=== PATIENT | male | born 1965 | race Caucasian/White ===

== ENCOUNTER 2018-03-28 08:21 | Emergency (ER) | payer OTHER ==
[2018-03-28 08:26] VITALS: BP 137/95; PULSE 84; TEMP 98; BMI 44.1
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
[2018-03-28] MEDS ORDERED: KETOROLAC TROMETHAMINE 60 MG/2 ML VIAL IM ONE (08:57)
[2018-03-28] MEDS ORDERED: KETOROLAC TROMETHAMINE 60 MG/2 ML VIAL ONE (08:58)
== END 2018-03-28 10:54 | disposition home or self-care (01) ==
LOC: JERFT 08:21
CPT/HCPCS: 72050-TC-FY; 72100-TC-FY; 99281-25

== ENCOUNTER 2019-05-23 03:08 | Emergency (ER) | payer SELFPAY ==
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
[2019-05-23 03:57] VITALS: BMI 41.3
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
[2019-05-23 04:15] LABS: BASO % 0.6 % (0-2.0); EOS % 1.5 % (0-4.5); HEMATOCRIT 44.9 % (35.4-49); HEMOGLOBIN 15.1 GM/dL (11.7-16.9); LYMPH % 15.8 % (8-40); MCH 30.4 pg (25.7-33.7); MCHC 33.7 g/dl (32.0-35.9); MEAN PLT VOLUME 8.2 fl (7.5-11.1); MONO % 6.3 % (3.8-10.2); NEUT % 75.8 % (42.8-82.8); PLATELET COUNT 258 K/MM3 (134-434); RBC 4.98 M/mm3 (4.00-5.60); RDW 13.8 % (11.9-15.9)
[2019-05-23] MEDS ORDERED: ACETAMINOPHEN 1000 MG/100 ML VIAL (NON FORMULARY) IVPB ONE (04:19)
[2019-05-23 04:29] LABS: INR 0.96 (0.83-1.09); PROTHROMBIN TIME (PATIENT) 11.3 SEC (9.7-13.0)
[2019-05-23 04:32] LABS: ACTIVATED PTT 32.7 SECONDS (25.2-36.5)
[2019-05-23] MEDS ORDERED: ACETAMINOPHEN INJECTION 100 ML IVPB ONE (04:41)
[2019-05-23 04:52] LABS: ALBUMIN 3.3 g/dl (3.4-5.0); BILIRUBIN,TOTAL 0.5 mg/dL (0.2-1); BLOOD UREA NITROGEN 16.7 mg/dL (7-18); CALCIUM 8.7 mg/dL (8.5-10.1); CREATININE 0.8 mg/dL (0.55-1.3); POTASSIUM 3.9 mmol/L (3.5-5.1); TOT PROT 6.6 g/dl (6.4-8.2)
--- NOTE | 2019-05-23 10:41 | EKG ---
Test Reason : Blood Pressure : / mmHG Vent. Rate : 073 BPM Atrial Rate : 073 BPM P-R Int : 144 ms QRS Dur : 086 ms QT Int : 384 ms P-R-T Axes : 043 018 032 degrees QTc Int : 423 ms POOR DATA QUALITY, INTERPRETATION MAY BE ADVERSELY AFFECTED NORMAL SINUS RHYTHM NORMAL ECG WHEN COMPARED WITH ECG OF 21-FEB-2016 20:05, NO SIGNIFICANT CHANGE WAS FOUND Confirmed by Bradford Cabrales MD ([id number]) on 05/23/2019 10:40:55 AM Referred By: Confirmed By:Bradford Cabrales MD
[2019-05-23 11:28] VITALS: BP 122/77; PULSE 86; TEMP 97.2
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
== END 2019-05-23 11:38 | disposition home or self-care (01) ==
LOC: JER 03:08
PROC: 3E033NZ Introduction of Analgesics, Hypnotics, Sedatives into Peripheral Vein, Percutaneous Approach (ICD-10-PCS; principal; 2019-05-23)
DX: S13.4XXA Sprain of ligaments of cervical spine, initial encounter (principal); S80.02XA Contusion of left knee, initial encounter; V43.52XA Car driver injured in collision with other type car in traffic accident, initial encounter; Y93.89 Activity, other specified; Y92.410 Unspecified street and highway as the place of occurrence of the external cause; Z85.46 Personal history of malignant neoplasm of prostate
CPT/HCPCS: 36415; 70450-TC; 71260-TC; 72125-TC; 73562-TC-LT-FY; 73700-TC-RT; 74177-TC; 80053; 82550; 84484; 85025; 85610; 85730; 93005; 93010; 99285-25; J0131

== ENCOUNTER 2022-02-16 11:49 | Emergency (ER) | payer OTHER ==
[2022-02-16 12:27] VITALS: BP 127/83; PULSE 76; RESP 18; TEMP 98; BMI 38.4
[2022-02-16] MEDS ORDERED: METHOCARBAMOL 500 MG TABLET PO ONE (13:12)
[2022-02-16] MEDS ORDERED: METHOCARBAMOL 500 MG TABLET ONE (13:28)
== END 2022-02-16 13:53 | disposition home or self-care (01) ==
LOC: JERFT 11:49
DX: M25.511 Pain in right shoulder (principal)
CPT/HCPCS: 73030-TC-RT-FY; 99283-25

== ENCOUNTER 2022-06-21 04:29 | Day surgery (SDC) | payer OTHER ==
[2022-06-17 12:38] VITALS: BMI 38.4
[~2022-06-21 04:29] MED LIST: BUPIVACAINE HCL/PF 0.25% (2.5MG/ML) 10 ML VIAL IJ ONE; LIDOCAINE HCL 1% PRESERVATIVE FREE - 30ML VIAL NR ONE
[2022-06-21] MEDS ORDERED: BUPIVACAINE HCL/PF 0.25% (2.5MG/ML) 10 ML VIAL ONE (08:43)
[2022-06-21] MEDS ORDERED: BUPIVACAINE HCL/PF 0.5% (5MG/ML) 10 ML VIAL ONE (08:44)
[2022-06-21] MEDS ORDERED: LIDOCAINE HCL/PF 1% SDV 5ML VIAL ONE (08:44)
[2022-06-21] MEDS ORDERED: BETAMET ACET/BETAMET NA PH 30 MG/5 ML VIAL ONE (08:44)
[2022-06-21] MEDS ORDERED: DEXAMETHASONE SOD PHOSPHATE 10 MG/1 ML VIAL ONE (09:32)
[2022-06-21] MEDS ORDERED: MIDAZOLAM HCL 2 MG/2 ML SINGLE DOSE VIAL ONE (10:11)
[2022-06-21] MEDS ORDERED: LIDOCAINE HCL 1% PRESERVATIVE FREE - 30ML VIAL NR ONE (10:19)
[2022-06-21] MEDS ORDERED: IOHEXOL 180 MG/1 ML ML IJ ONE (10:19)
[2022-06-21] MEDS ORDERED: BUPIVACAINE HCL/PF 0.25% (2.5MG/ML) 10 ML VIAL IJ ONE (10:19)
[2022-06-21] MEDS ORDERED: DEXAMETHASONE SOD PHOSPHATE 10 MG/1 ML VIAL IM ONE (10:23)
[2022-06-21 13:05] VITALS: RESP 18
[2022-06-21 13:21] VITALS: TEMP 97.9
[2022-06-21 13:25] VITALS: BP 150/88; PULSE 93
== END 2022-06-21 12:04 | disposition home or self-care (01) ==
LOC: JASU-SURG 04:29
PROVIDERS: ATTEND Physical Medicine & Rehabilitation
PROC: 3E0R3BZ Introduction of Anesthetic Agent into Spinal Canal, Percutaneous Approach (ICD-10-PCS; 2022-06-21)
PROC: 3E0R33Z Introduction of Anti-inflammatory into Spinal Canal, Percutaneous Approach (ICD-10-PCS; principal; 2022-06-21 09:30)
DX: M54.16 Radiculopathy, lumbar region (principal); M54.50 Low back pain, unspecified
CPT/HCPCS: 76000-TC-FY; 82962; J1100

== ENCOUNTER 2023-11-09 19:05 | Inpatient (IN) | payer SELFPAY ==
[2023-11-09] MEDS ORDERED: ACETAMINOPHEN INJECTION 100 ML IVPB ONE (20:13)
[2023-11-09] MEDS: ACETAMINOPHEN 1000 MG/100 ML BAG IVPB ONE (20:21)
[2023-11-09 20:35] LABS: BASO % 0.5 % (0-2.0); EOS % 0.2 % (0-4.5); HEMATOCRIT 44.9 % (35.4-49); HEMOGLOBIN 15.3 GM/dL (11.7-16.9); MCH 30.8 pg (25.7-33.7); MCHC 34.2 g/dl (32.0-35.9); MEAN CELL VOLUME 89.9 fl (80-96); MEAN PLT VOLUME 8.5 fl (7.5-11.1); MONO % 7.5 % (3.8-10.2); NEUT % 83.8 % (42.8-82.8); PLATELET COUNT 242 10^3/uL (134-434); RBC 4.99 M/mm3 (4.00-5.60); RDW 13.2 % (11.9-15.9); WHITE BLOOD COUNT 14.9 K/mm3 (4.0-10.0)
[2023-11-09 20:48] LABS: POTASSIUM 3.9 mmol/L (3.5-5.1)
[2023-11-09 20:50] LABS: CALCIUM 8.4 mg/dL (8.5-10.1)
[2023-11-09 20:51] LABS: ALBUMIN 3.4 g/dl (3.4-5.0); BLOOD UREA NITROGEN 11.8 mg/dL (7-18)
[2023-11-09 20:54] LABS: CREATININE 0.9 mg/dL (0.55-1.3)
[2023-11-09 20:56] LABS: BILIRUBIN,TOTAL 0.8 mg/dL (0.2-1); TOT PROT 6.9 g/dl (6.4-8.2)
[2023-11-09] MEDS: SODIUM CHLORIDE 0.9% 500 ML INFUS.BAG IV ONE (21:28)
[2023-11-09] MEDS ORDERED: PIPERACILLIN/TAZOB 3.375 GM 3.375 GM/50 ML BAG IVPB ONE (22:31)
[2023-11-09] MEDS: PIPERACILLIN/TAZOB 3.375 GM 3.375 GM in DEXTROSE 5%-WATER - 50 ML IVPB ONE (22:42)
[2023-11-10] MEDS: DEXTROSE 5%-0.45% SALINE 1,000 ML IV SCH ×2 (06:53→11:41)
[2023-11-10] MEDS: ACETAMINOPHEN 1000 MG/100 ML BAG IVPB PRN (06:53)
[2023-11-10 07:17] LABS: BASO % 0.3 % (0-2.0); EOS % 0.1 % (0-4.5); HEMATOCRIT 43.5 % (35.4-49); HEMOGLOBIN 14.8 GM/dL (11.7-16.9); LYMPH % 6.7 % (8-40); MCHC 33.9 g/dl (32.0-35.9); MEAN CELL VOLUME 91.3 fl (80-96); MEAN PLT VOLUME 8.9 fl (7.5-11.1); MONO % 7.3 % (3.8-10.2); NEUT % 85.6 % (42.8-82.8); PLATELET COUNT 239 10^3/uL (134-434); RBC 4.76 M/mm3 (4.00-5.60); RDW 13.2 % (11.9-15.9); WHITE BLOOD COUNT 13.9 K/mm3 (4.0-10.0)
[2023-11-10 07:30] LABS: INR 1.08 (0.83-1.09); PROTHROMBIN TIME (PATIENT) 12.4 SEC (9.7-13.0)
[2023-11-10 07:32] LABS: POTASSIUM 4.2 mmol/L (3.5-5.1)
[2023-11-10 07:39] LABS: BLOOD UREA NITROGEN 11.3 mg/dL (7-18)
[2023-11-10 07:41] LABS: CALCIUM 8.4 mg/dL (8.5-10.1)
[2023-11-10 07:42] LABS: CREATININE 0.7 mg/dL (0.55-1.3)
[2023-11-10 07:49] LABS: URINE APPEARANCE CLEAR; URINE BILIRUBIN NEGATIVE (NEGATIVE); URINE COLOR YELLOW; URINE GLUCOSE (UA) 4+ (NEGATIVE); URINE KETONE 40 mg/dl (NEGATIVE); URINE PROTEIN TRACE (NEGATIVE)
[2023-11-10 07:50] LABS: EPI CELLS 5.9 /uL (0-25.1); HYALINE CASTS 0.87 /uL (0-3.1); URINE BACTERIA 24.6 /uL (0-1359); URINE LEUK ESTERASE NEGATIVE (NEGATIVE); URINE NITRITE NEGATIVE (NEGATIVE); URINE RBC 10.9 /uL (0-23.9); URINE WBC 15.9 /uL (0-25.8)
[2023-11-10] MEDS ORDERED: ONDANSETRON 4 MG/2 ML VIAL IVPUSH PRN ×2 (08:14→10:16)
[2023-11-10] MEDS ORDERED: oxyCODONE HCL 5 MG TABLET PO PRN (08:14)
[2023-11-10] MEDS ORDERED: PROPOFOL 20 ML ONE (08:29)
[2023-11-10] MEDS ORDERED: MIDAZOLAM HCL 2 MG/2 ML SINGLE DOSE VIAL ONE (08:30)
[2023-11-10] MEDS ORDERED: SUCCINYLCHOLINE CHLORIDE 200 MG/10 ML SYRINGE ONE (08:30)
[2023-11-10] MEDS ORDERED: BUPIVACAINE HCL/PF 0.25% (2.5MG/ML) 10 ML VIAL ONE (08:33)
[2023-11-10] MEDS ORDERED: ROCURONIUM BROMIDE 50 MG/5 ML SYRINGE ONE (09:09)
[2023-11-10] MEDS: cefOXitin SODIUM 2 GM VIAL (RESTRICTED TO ID) IVPB ONE ×2 (09:10)
[2023-11-10] MEDS ORDERED: HYDROmorphone HCl 2 MG/ML VIAL ONE (09:23)
[2023-11-10] MEDS ORDERED: ONDANSETRON 4 MG/2 ML VIAL ONE (09:29)
[2023-11-10] MEDS ORDERED: KETOROLAC TROMETHAMINE 30 MG/1 ML VIAL ONE (09:30)
[2023-11-10] MEDS ORDERED: SUGAMMADEX SODIUM 200 MG/2 ML VIAL ONE (09:45)
[2023-11-10] MEDS: LACTATED RINGERS SOLUTION 1,000 ML IV SCH ×2 (10:50→17:52)
[2023-11-10] MEDS: PIPERACILLIN/TAZOB 3.375 GM 3.375 GM in DEXTROSE 5%-WATER - 50 ML IVPB SCH ×2 (10:51→17:48)
[2023-11-10] MEDS ORDERED: ACETAMINOPHEN INJECTION 100 ML IVPB ONE (15:20)
[2023-11-10] MEDS: ACETAMINOPHEN 1000 MG/100 ML BAG IVPB SCH (15:21)
[2023-11-10] MEDS ORDERED: PIPERACILLIN/TAZOB 3.375 GM 3.375 GM in DEXTROSE 5%-WATER - 50 ML IVPB SCH (18:00)
[2023-11-10 20:41] VITALS: BMI 38.9
[2023-11-11] MEDS: oxyCODONE HCL 5 MG TABLET PO PRN (02:38)
[2023-11-11] MEDS: IBUPROFEN 600 MG TABLET (FP) PO PRN (10:11)
[2023-11-11 10:29] LABS: BASO % 0.3 % (0-2.0); EOS % 1.1 % (0-4.5); HEMATOCRIT 43.1 % (35.4-49); HEMOGLOBIN 14.5 GM/dL (11.7-16.9); LYMPH % 10.5 % (8-40); MCH 30.6 pg (25.7-33.7); MCHC 33.7 g/dl (32.0-35.9); MEAN CELL VOLUME 90.8 fl (80-96); MEAN PLT VOLUME 8.7 fl (7.5-11.1); MONO % 7.5 % (3.8-10.2); NEUT % 80.6 % (42.8-82.8); PLATELET COUNT 261 10^3/uL (134-434); RBC 4.75 M/mm3 (4.00-5.60); RDW 13.2 % (11.9-15.9); WHITE BLOOD COUNT 10.9 K/mm3 (4.0-10.0)
[2023-11-11 10:48] LABS: POTASSIUM 3.6 mmol/L (3.5-5.1)
[2023-11-11 10:57] LABS: CALCIUM 8.5 mg/dL (8.5-10.1)
[2023-11-11 10:58] LABS: BLOOD UREA NITROGEN 8.8 mg/dL (7-18)
[2023-11-11 11:01] LABS: CREATININE 0.9 mg/dL (0.55-1.3)
[2023-11-11] MEDS: ACETAMINOPHEN 500 MG TABLET (FP) PO SCH (12:47)
[2023-11-11] MEDS: INSULIN ASPART SLIDING SCALE (NOVOLOG) 1 VIAL SQ SCH (16:25)
[2023-11-11 18:59] VITALS: RESP 18
[2023-11-11] MEDS: INSULIN (LEVEMIR) 100 UNITS/ML UNITS SQ SCH (21:36)
[2023-11-12 08:59] LABS: BASO % 0.2 % (0-2.0); EOS % 1.7 % (0-4.5); HEMATOCRIT 38.3 % (35.4-49); HEMOGLOBIN 13.5 GM/dL (11.7-16.9); LYMPH % 10.6 % (8-40); MCH 31.2 pg (25.7-33.7); MCHC 35.3 g/dl (32.0-35.9); MEAN CELL VOLUME 88.5 fl (80-96); MEAN PLT VOLUME 8.5 fl (7.5-11.1); MONO % 7.5 % (3.8-10.2); PLATELET COUNT 271 10^3/uL (134-434); RBC 4.33 M/mm3 (4.00-5.60); RDW 12.6 % (11.9-15.9); WHITE BLOOD COUNT 9.3 K/mm3 (4.0-10.0)
[2023-11-12 09:23] LABS: POTASSIUM 3.7 mmol/L (3.5-5.1)
[2023-11-12 09:30] LABS: CREATININE 0.6 mg/dL (0.55-1.3)
[2023-11-12 09:32] LABS: BILIRUBIN,TOTAL 0.7 mg/dL (0.2-1); CALCIUM 8.3 mg/dL (8.5-10.1); TOT PROT 5.8 g/dl (6.4-8.2)
[2023-11-12 11:21] LABS: ALBUMIN 2.4 g/dl (3.4-5.0)
[2023-11-12] MEDS: INSULIN ASPART SLIDING SCALE (NOVOLOG) 1 VIAL SQ SCH (12:29)
[2023-11-12] MEDS: DOCUSATE SODIUM 100 MG CAPSULE (FP) PO SCH (21:57)
[2023-11-12] MEDS: oxyCODONE HCL 5 MG TABLET PO PRN (21:57)
[2023-11-12] MEDS: SENNOSIDES 8.6MG TABLET (FP) PO PRN (21:57)
[2023-11-12] MEDS: INSULIN (LEVEMIR) 100 UNITS/ML UNITS SQ SCH (21:58)
[2023-11-13 15:33] VITALS: BP 121/68; PULSE 88; TEMP 98
== END 2023-11-13 17:33 | disposition home or self-care (01) | DRG 225 ==
LOC: JER 19:05 → JERBED 23:29 → J5S 11-10 18:40 → UNDODISIN 11-12 17:00
PROVIDERS: ADMIT Internal Medicine; ATTEND Internal Medicine
PROC: 0DTJ4ZZ Resection of Appendix, Percutaneous Endoscopic Approach (ICD-10-PCS; principal; 2023-11-10 10:00)
DX: K35.891 Other acute appendicitis without perforation, with gangrene (principal); E11.9 Type 2 diabetes mellitus without complications; R50.82 Postprocedural fever; M54.10 Radiculopathy, site unspecified; E66.9 Obesity, unspecified; Z68.39 Body mass index [BMI] 39.0-39.9, adult; Z85.46 Personal history of malignant neoplasm of prostate
CPT/HCPCS: 36415; 71046-TC-FY; 74177-TC; 80048; 80053; 81003; 82962; 83036; 83690; 85025; 85610; 86850; 86900; 86901; 87040; 87086; 87635; 88304-TC; 94760; 99285-25; J0131; Q9967

== ENCOUNTER 2023-11-29 07:14 | Emergency (ER) | payer SELFPAY ==
[2023-11-29 07:22] VITALS: BMI 37.6
[2023-11-29] MEDS ORDERED: ACETAMINOPHEN 325 MG TABLET (FP) ONE (07:51)
[2023-11-29] MEDS: ACETAMINOPHEN 325 MG TABLET (FP) PO ONE (08:10)
[2023-11-29 08:27] LABS: BASO % 0.4 % (0-2.0); EOS % 0.2 % (0-4.5); HEMATOCRIT 41.1 % (35.4-49); HEMOGLOBIN 14.2 GM/dL (11.7-16.9); LYMPH % 5.6 % (8-40); MCH 30.3 pg (25.7-33.7); MCHC 34.5 g/dl (32.0-35.9); MEAN CELL VOLUME 87.7 fl (80-96); MEAN PLT VOLUME 7.9 fl (7.5-11.1); NEUT % 85.8 % (42.8-82.8); PLATELET COUNT 424 10^3/uL (134-434); RBC 4.69 M/mm3 (4.00-5.60); RDW 12.9 % (11.9-15.9); WHITE BLOOD COUNT 12.9 K/mm3 (4.0-10.0)
[2023-11-29] MEDS ORDERED: LIDOCAINE 1%/EPI 1:100000 (20 ML MULTI DOSE VIAL) ONE (08:59)
[2023-11-29 09:02] LABS: POTASSIUM 4.4 mmol/L (3.5-5.1)
[2023-11-29 09:04] LABS: ALBUMIN 2.9 g/dl (3.4-5.0); CALCIUM 8.9 mg/dL (8.5-10.1)
[2023-11-29 09:07] LABS: CREATININE 0.9 mg/dL (0.55-1.3)
[2023-11-29] MEDS ORDERED: VANCOMYCIN 1 GRAM (PRE-DOCKED) 1,000 MG/250 ML BAG IVPB ONE (09:11)
[2023-11-29] MEDS ORDERED: PIPERACILLIN/TAZOB 4.5 GM 4.5 GM/100 ML BAG IVPB ONE (09:11)
[2023-11-29] MEDS: PIPERACILLIN/TAZOB 4.5 GM 4.5 GM in DEXTROSE 5%-WATER 100 ML IVPB ONE (09:20)
[2023-11-29] MEDS: SODIUM CHLORIDE 0.9% 500 ML INFUS.BAG IV ONE (09:20)
[2023-11-29] MEDS: VANCOMYCIN 1,000 MG in DEXTROSE 5%-WATER - 250 ML IVPB ONE (10:17)
[2023-11-29] MEDS ORDERED: KETOROLAC TROMETHAMINE 15 MG/ML VIAL ONE (11:13)
[2023-11-29] MEDS: KETOROLAC TROMETHAMINE 15 MG/ML VIAL IVPUSH ONE (11:18)
[2023-11-29 12:31] VITALS: BP 111/67; PULSE 89; RESP 16; TEMP 98.7
== END 2023-11-29 12:47 | disposition home or self-care (01) ==
LOC: JER 07:14
PROC: 3E03329 Introduction of Other Anti-infective into Peripheral Vein, Percutaneous Approach (ICD-10-PCS; principal; 2023-11-29)
PROC: 3E03329 Introduction of Other Anti-infective into Peripheral Vein, Percutaneous Approach (ICD-10-PCS; 2023-11-29)
PROC: 3E0333Z Introduction of Anti-inflammatory into Peripheral Vein, Percutaneous Approach (ICD-10-PCS; 2023-11-29)
DX: L02.211 Cutaneous abscess of abdominal wall (principal); R10.32 Left lower quadrant pain; L29.9 Pruritus, unspecified
CPT/HCPCS: 36415; 80053; 85025; 87070; 87186; 87205; 99284-25